=== PATIENT | female | born 1935 | race Caucasian/White ===

== ENCOUNTER 2020-12-19 07:48 | Outpatient (CLI) | payer MEDICARE, SELFPAY ==
--- NOTE | ~2020-12-19 | DEXA_ITS ---
Bone Density Report Name: Gail Duke Age: 85 Sex: Female Ethnicity: White Date of : 1935 Indication: osteopenia; height loss; cancer; Referring Provider: Jay Agudelo Study: Bone densitometry was performed. Exam Date: December 19, 2020 Accession number: [id number] Bone Density: Region BMD T-score Z-score Classification AP Spine (L1, L3) 1.016 0.0 2.8 Normal Femoral Neck (Left) 0.634 -1.9 0.6 Osteopenia Total Hip (Left) 0.754 -1.5 0.8 Osteopenia Total Hip Bilateral Avg 0.721 -1.8 0.5 Osteopenia Femoral Neck (Right) 0.645 -1.8 0.7 Osteopenia Total Hip (Right) 0.686 -2.1 0.2 Osteopenia World Health Organization criteria for BMD impression classify patients as: Normal (T-score at or above -1.0), Osteopenia (T-score between -1.0 and -2.5), or Osteoporosis (T-score at or below -2.5). 10-year Fracture Risk(1): Major Osteoporotic Fracture 13% Hip Fracture 4.2% Reported Risk Factors: [place] (), Neck BMD=0.634, BMI=20.7 (1) FRAX(R) Version 3.08. Fracture probability calculated for an untreated patient. Fracture probability may be lower if the patient has received treatment. Previous Exams: Region Exam Age BMD T-score BMD Change BMD Change Date g/cm2 vs Baseline vs Previous AP Spine(L1, L3) 12/19/2020 85 1.016 0.0 0.071(7.5%)# 0.056(5.8%)# 11/05/2010 75 0.960 -0.5 0.015(1.6%) -0.001(-0.1%) 10/31/2008 73 0.961 -0.5 0.016(1.6%) 0.016(1.6%) 06/24/2006 71 0.946 -0.6 Total Hip(Left) 12/19/2020 85 0.754 -1.5 -0.178(-19.1%) -0.177(-19.0%) 11/05/2010 75 0.932 -0.1 -0.001(-0.1%) -0.022(-2.3%) 10/31/2008 73 0.954 0.1 0.022(2.3%) 0.022(2.3%) 06/24/2006 71 0.932 -0.1 Total Hip(Right) 12/19/2020 85 0.686 -2.1 -0.164(-19.3%) -0.125(-15.4%) 11/05/2010 75 0.810 -1.1 -0.039(-4.6%)* -0.039(-4.6%)* 10/31/2008 73 0.850 -0.8 0.000(0.0%) 0.000(0.0%) 06/24/2006 71 0.849 -0.8 *Denotes significance at 95% confidence level, LSC for AP Spine = 0.022 g/cm2, LSC for Total Hip = 0.027 g/cm2 Clinical Information Provided by Patient: Has used the following medications: Vitamin D Has the following medical conditions: Cancer Patient maximum height was 65 Menopause Age: 55 Does not regularly consume dairy products Drinks caffeinated beverages Onset of menses at age 12 Number of children 4 Impression: The patient has low bone mass, based on the Right
== END 2020-12-19 07:49 | disposition home or self-care (01) ==
PROVIDERS: PCP Family Medicine; Visit Provider Physician Assistant Medical
DX: Z78.0 Asymptomatic menopausal state (principal); M85.851 Other specified disorders of bone density and structure, right thigh; M85.852 Other specified disorders of bone density and structure, left thigh
CPT/HCPCS: 77080

== ENCOUNTER 2022-10-11 09:12 | Outpatient (CLI) | payer MEDICARE, SELFPAY ==
[2022-10-11 12:06] LABS: Kit Draw Collected
== END 2022-10-11 09:13 | disposition home or self-care (01) ==
LOC: ANHGOSHLAB 09:14
PROVIDERS: PCP Family Medicine; Visit Provider Physician Assistant
DX: Z79.899 Other long term (current) drug therapy (principal)
CPT/HCPCS: 36415

== ENCOUNTER 2023-09-23 12:36 | Emergency (ER) | payer MEDICARE, SELFPAY ==
--- NOTE | ~2023-09-23 | CT_ITS ---
EXAMINATION: CT BRAIN W/O DATE: 09/23/2023 14:50 INDICATION: Weakness TECHNIQUE: Computed tomography (CT) of the head was performed without intravenous contrast. The dose- length product was 681.00 mGy-cm. Automated exposure control and iterative reconstruction technique w ere employed. COMPARISON: No prior studies for comparison. FINDINGS: Normal brain parenchymal volume for age. Normal elizabeth-white differentiation. No acute intrac ranial hemorrhage, infarction, mass or mass effect. No ventriculomegaly or midline shift. Midline sagittal images demonstrate a normal corpus callosum, c raniovertebral junction and sella turcica. Basilar cisterns are patent. Paranasal sinuses and mastoids are pneumatized. No depressed skull fractures. IMPRESSION: 1. No acute intracranial abnormality. Reviewed, dictated and finalized at location B.
[2023-09-23 13:04] VITALS: BP 157/86; PULSE 94; RESP 16; TEMP 36.4; O2SAT 99
--- NOTE | 2023-09-23 14:31 | ED.GENADULT ---
HPI - General Adult General Chief complaint: Weakness <Karen Franklin APRN - Last Filed: 09/23/23 19:36> Stated complaint: weak <Karen Franklin APRN - Last Filed: 09/23/23 19:36> Time Seen by Provider: 09/23/23 14:31 <Karen Franklin APRN - Last Filed: 09/23/23 19:36> Focused HPI: Gail Duke is an 88 y/o female who presents with reports of having symptoms of a TIA about a week ago and then again today and her PCP wanted her checked out. She explains that last friday she had an episode of vision changes, feeling not right/ she states difficult to describe but it did not last long and she went about her day. Today she had another episode of feeling really bad wtih vision changes that didn't last very long and she called her PCP and her PCP told her to go to the ER. She denies chest pain / palpitations/ SOB/ numbness/tingling/ she states she had some pain to the left side of her head after the first episode but that's it. GENERAL: Well-appearing, well-nourished, and in no acute distress. HEAD: Normocephalic, atraumatic. CHEST: Clear to auscultation. ?No respiratory distress. HEART: Regular rate and rhythm.? NEURO: ?Alert and oriented x3. Patient screened in triage and initial orders placed.? ?Additional care and disposition to be based upon?diagnostic testing and treatment. <Karen Franklin APRN - Last Filed: 09/23/23 19:36> History of Present Illness HPI narrative: Patient presents with complaint of intermittent brief episodes of generalized weakness. No chest pain, shortness of breath, abdominal pain, dizziness, nausea, or vomiting. She states she will experience feeling strangely and her eyes will feel weird but without curtain defect, flashes/floaters. This started occurring last Friday but she has remained active, playing tennis since. No active symptoms today. No headache but she does state her head felt sore the next day. Episodes will last for only a few secondrs with the last one occurring this morning. <Laurie Romero MD - Last Filed: 09/28/23 15:25> Related Data Home medications: Home Medications Medication Instructions Recorded Confirmed latanoprost 0.005 % eye drops 1 drp EACH EYE 10/28/22 10/28/22 <Karen Lewis September, - Last Filed: 09/23/23 19:36> Allergies/adverse reactions: Allergies Allergy/AdvReac Type Severity Reaction Status Date / Time No Known Allergies Allergy Verified 04/30/23 12:53 <Karen Lewis September, - Last Filed: 09/23/23 19:36> PMFSH Past Medical History Medical History: Medical History Biceps tendonitis on left External hemorrhoids Facet arthropathy Mallet finger of left finger(s) Other intervertebral disc degeneration, 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 SVT (supraventricular tachycardia) Viral hepatitis A without hepatic coma <Karen Lewis September, - Last Filed: 09/23/23 19:36> Family History Family History: Family History Sibling Diabetes mellitus Mother Family history of Alzheimer's disease <Karen Lewis September, - Last Filed: 09/23/23 19:36> Social History Social History: Social History Smoking status: Never smoker Alcohol intake: never Substance use: never Lack of Transportation: No Lack of Food: Never True Current Housing: I Have Housing Concerned About Future Housing: No Difficulty Paying Gas/Electric Bills: No Difficulty Paying for Meds: No Currently Unemployed: No Education: High School Diploma/GED Difficulty w/ Childcare or Family Care: No <Karen Lewis September, - Last Filed: 09/23/23 19:36> Exam Const: General: healthy appearing, no acute distress and alert; No confusion, diaphoretic or ill appearing <Laurie Romero MD - Last Filed: 09/28/23 15:25> Nutritional Appearance: well nourished <Laurie Braun
--- NOTE | 2023-09-23 14:38 | ECG_ITS ---
SEE SCANNED COPY FOR CONFIRMED REPORT MTDD
[2023-09-23 15:04] LABS: Basophils Percent Auto 0.6 % (0.2-1.2); Eosinophils Percent Auto 0.4 % (0-4.4); Hematocrit 39.6 % (37.0-47.0); Hemoglobin 12.9 g/dL (12.0-15.0); Immature Granulocyte Absolute 0.01 K/mm3 (0.00-0.031); Immature Granulocyte Percent A 0.1 % (0-0.5); Lymphocytes Percent Auto 19.8 % (18.3-44.2); Mean Corpuscular HGB Conc 32.6 g/dl (32-36); Mean Corpuscular Hemoglobin 30.6 pg (26-34); Mean Corpuscular Volume 94.1 fl (80-100); Mean Platelet Volume 9.6 fl (7.4-10.4); Monocytes Absolute Auto 0.7 K/mm3 (0.1-0.6); Monocytes Percent Auto 8.2 % (2.6-8.5); Neutrophils Absolute Auto 5.7 K/mm3 (1.3-6.7); Neutrophils Percent Auto 70.9 % (45.5-73.1); Platelet Count Result 296 k/mm3 (150-375); Red Blood Count 4.21 M/mm3 (4.2-5.4); Red Cell Distribution Width 12.4 % (11.5-14.5); White Blood Count 8.1 K/mm3 (4.5-10.0)
[2023-09-23 15:05] LABS: Basophils Absolute Auto 0.1 K/mm3 (0.0-0.1)
[2023-09-23 15:16] LABS: Alanine Aminotransferase 20 U/L (6-35); Albumin Level 4.8 g/dL (3.5-5.1); Alkaline Phosphatase 80 U/L (38-126); Anion Gap 5 mmol/L (4-12); Aspartate Amino Transferase 27 U/L (14-36); Bilirubin,Total 0.5 mg/dL (0.2-1.3); Blood Urea Nitrogen 18 mg/dL (7-17); Carbon Dioxide 28 mmol/L (22-30); Chloride 106 mmol/L (98-107); Estimated CRCL calculation 31 ml/min; Estimated Glomerular Filt Rate 59; Glucose 105 mg/dL (65-110); Potassium 4.5 mmol/L (3.4-5.0); Sodium 139 mmol/L (137-145)
[2023-09-23 15:17] LABS: Appearance Urine Clear (Clear); Color Urine Dark Yellow (Yellow); Protein Urine Negative (Negative); Specific Grav Ur 1.022 (1.001-1.035); pH Urine 5.5 (5.0-9.0)
[2023-09-23 15:18] VITALS: BP 154/78; PULSE 81; RESP 15; O2SAT 99
[2023-09-23 15:18] LABS: Bacteria Urine None Seen /hpf; Bilirubin Urine Negative (Negative); Blood Urine Negative (Negative); Glucose Urine UA Negative (Negative); Hyaline Casts Urine Present /lpf; Ketones Urine Trace mg/dL (Negative); Leukocyte Esterase Ur Trace LEU/UL (Negative); Need Manual Microscopic Reviewed; Nitrate Urine Negative (Negative); Non Pathogenic Casts >20; RBC Urine 0-2 /hpf (0-2); Squamous Epithelial Cell Urine None Seen /hpf (Few); WBC Urine 0-5 /hpf (0-3)
[2023-09-23 15:19] VITALS: PULSE 81
[2023-09-23 15:19] LABS: Add Urine Microscopic? YES
[2023-09-23 15:28] LABS: Troponin I < 0.012 ng/mL (0.000-0.034)
[2023-09-23 15:50] VITALS: BP 157/100; PULSE 84; RESP 17; O2SAT 100
[2023-09-23 15:54] LABS: Prothrombin Time 13.1 Seconds (11.1-14.7)
[2023-09-23 15:56] LABS: Partial Thromboplastin Time 27.7 Seconds (22.3-36.8)
--- NOTE | 2023-09-23 16:44 | ED.WEAKNESS ---
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 SVT (supraventricular tachycardia) Viral hepatitis A without hepatic coma Family History Family History Sibling Diabetes mellitus Mother Family history of Alzheimer's disease Social History Social History Smoking status: Never smoker Alcohol intake: never Substance use: never Lack of Transportation: No Lack of Food: Never True Current Housing: I Have Housing Concerned About Future Housing: No Difficulty Paying Gas/Electric Bills: No Difficulty Paying for Meds: No Currently Unemployed: No Education: High School Diploma/GED Difficulty w/ Childcare or Family Care: No Course Vital Signs Vital signs: Vital Signs Temperature 97.5 F L 09/23/23 13:04 Pulse Rate 94 09/23/23 13:04 Respiratory Rate 16 09/23/23 13:04 Blood Pressure 157/86 H 09/23/23 13:04 Pulse Oximetry 99 09/23/23 13:04 Temperature 97.5 F L 09/23/23 13:04 Pulse Rate 87 09/23/23 18:20 Respiratory Rate 14 09/23/23 18:20 Blood Pressure 141/108 H 09/23/23 18:20 Pulse Oximetry 97 09/23/23 18:20 MDM - Weakness Lab Data 09/23/23 14:58 09/23/23 14:58 Labs: Lab Results 09/23/23 09/23/23 09/23/23 Range/Units 14:53 14:58 17:34 WBC 8.1 (4.5-10.0) K/mm3 RBC 4.21 (4.2-5.4) M/mm3 Hgb 12.9 (12.0-15.0) g/dL Hct 39.6 (37.0-47.0) % MCV 94.1 (80-100) fl MCH 30.6 (26-34) pg MCHC 32.6 (32-36) g/dl RDW 12.4 (11.5-14.5) % Plt Count 296 (150-375) k/mm3 MPV 9.6 (7.4-10.4) fl Immature Gran % (Auto) 0.1 (0-0.5) % Neut % (Auto) 70.9 (45.5-73.1) % Lymph % (Auto) 19.8 (18.3-44.2) % [place] % (Auto) 8.2 (2.6-8.5) % Eos % (Auto) 0.4 (0-4.4) % Baso % (Auto) 0.6 (0.2-1.2) % Lymph # (Auto) 1.60 (0.9-3.2) K/mm3 [place] # (Auto) 0.7 H (0.1-0.6) K/mm3 Eos # (Auto) 0.0 (0-0.3) K/mm3 Baso # (Auto) 0.1 (0.0-0.1) K/mm3 Abs Immat Gran (auto) 0.01 (0.00-0.031) K/mm3 Absolute Neuts (auto) 5.7 (1.3-6.7) K/mm3 Absolute Nucleated RBC 0.000 (0.0-0.012) K/mm3 Nucleated RBC % 0.0 (0.0-0.2) % PT 13.1 (11.1-14.7) Seconds INR 1.0 APTT 27.7 (22.3-36.8) Seconds Sodium 139 (137-145) mmol/L Potassium 4.5 (3.4-5.0) mmol/L Chloride 106 (98-107) mmol/L Carbon Dioxide 28 (22-30) mmol/L Anion Gap 5 (4-12) mmol/L BUN 18 H (7-17) mg/dL Creatinine 0.90 (0.7-1.0) mg/dL Estim Creat Clear Calc 31 ml/min Estimated GFR 59 (59 - ) Glucose 105 (65-110) mg/dL Calcium 10.0 (8.4-10.2) mg/dL Magnesium (1.6-2.3) mg/dL Total Bilirubin 0.5 (0.2-1.3) mg/dL AST 27 (14-36) U/L ALT 20 (6-35) U/L Alkaline Phosphatase 80 (38-126) U/L Total Creatine Kinase (30-135) U/L Troponin I < 0.012 (0.000-0.034) ng/mL Total Protein 9.0 H (6.3-8.2) g/dL Albumin 4.8 (3.5-5.1) g/dL Urine Color Dark yellow (Yellow) Urine Appearance Clear (Clear) Urine pH 5.5 (5.0-9.0) Ur Specific [place] 1.022 (1.001-1.035) Urine Protein Negative (Negative) mg/dL Urine Glucose (UA) Negative (Negative) mg/dL Urine Ketones Trace H (Ne
--- NOTE | 2023-09-23 17:38 | ECG_ITS ---
SEE SCANNED COPY FOR CONFIRMED REPORT MTDD
[2023-09-23 18:05] LABS: Creatine Kinase 67 U/L (30-135); Magnesium 2.1 mg/dL (1.6-2.3)
[2023-09-23 18:15] LABS: Influenza A QL RT-PCR Negative (Negative); Influenza B QL RT-PCR Negative (Negative); RSV RNA, RT-PCR Negative (Negative); SARS-CoV-2 RNA PCR Negative (Negative)
[2023-09-23 18:20] VITALS: BP 141/108; PULSE 87; RESP 14; O2SAT 97
== END 2023-09-23 18:58 | disposition home or self-care (01) ==
PROVIDERS: Nurse Practitioner Family; Emergency Provider Student in an Organized Health Care Education/Training Program; PCP Family Medicine
DX: R53.1 Weakness (principal); Z20.822 Contact with and (suspected) exposure to COVID-19
CPT/HCPCS: 36415; 70450; 80053; 81001; 82550; 83735; 84484; 85025; 85610; 85730; 87637; 93005; 99284

== ENCOUNTER 2025-01-10 13:51 | Outpatient (CLI) | payer MEDICARE, SELFPAY ==
--- NOTE | ~2025-01-10 | DEXA_ITS ---
Bone Density Report Name: ADWOA PATEL Age: 89 Sex: Female Ethnicity: White Date of : 1935 Indication: osteopenia; height loss; cancer; secondary osteoporosis; Referring Provider: SAMEERA POOLE Study: Bone densitometry was performed. Exam Date: January 10, 2025 Accession number: [id number] Bone Density: Region BMD T-score Z-score Classification AP Spine(L1, L3) 0.920 -0.8 1.9 Normal Femoral Neck (Left) 0.588 -2.4 0.2 Osteopenia Total Hip (Left) 0.791 -1.2 1.1 Osteopenia Femoral Neck (Right) 0.571 -2.5 0.0 Osteoporosis Total Hip (Right) 0.693 -2.0 0.3 Osteopenia Total Hip Mean 0.742 -1.6 0.7 Osteopenia World Health Organization criteria for BMD impression classify patients as: Normal (T-score at or above -1.0), Osteopenia (T-score between -1.0 and -2.5), or Osteoporosis (T-score at or below -2.5). 10-year Fracture Risk: FRAX not reported because: Some T-score for Spine Total or Hip Total or Femoral Neck at or below -2.5 Previous Exams: Region Exam Age BMD T-score BMD Change BMD Change Date g/cm2 vs Baseline vs Previous AP Spine (L1,L3) 01/10/2025 89 0.920 -0.8 -0.097 (-9.5%) -0.097 (-9.5%) 12/19/2020 85 1.016 0.0 Total Hip(Left) 01/10/2025 89 0.791 -1.2 0.036 (4.8%)* 0.036 (4.8%)* 12/19/2020 85 0.754 -1.5 Total Hip(Right) 01/10/2025 89 0.693 -2.0 0.007 (1.0%) 0.007 (1.0%) 12/19/2020 85 0.686 -2.1 *Denotes significance at 95% confidence level, LSC for AP Spine = 0.022 g/cm2, LSC for Total Hip = 0.027 g/cm2 Clinical Information Provided by Patient: Has secondary osteoporosis Has used the following medications: Vitamin D Has the following medical conditions: Cancer Patient maximum height was 65.0 Menopause Age: 55 No regular weight bearing exercise Does not regularly consume dairy products Drinks caffeinated beverages Onset of menses at age 12 Number of children 4 Impression: The patient has osteoporosis, based on the Right Femoral Neck T-score. The BMD for the AP Spine (L1,L3) decreased, changing by -9.5% since the last DXA exam. Discussion: INCREASED RISK OF FRACTURE. BONE DENSITY IS UNDESIRABLY LOW AT ONE OR MORE SKELETAL SITES, CONSISTENT WITH POSTMENOPAUSAL OSTEOPOROSIS. This patient's lowest T-score meets the World Health Organization's (WHO) criteria for osteoporosis at one or more sites (T-score -2.5 or below). In untreated patients, the risk of osteoporotic fracture increases approximately two-fold for each 1.0 SD decrease in T-score. Low bone density is not the only risk factor for fracture; also consider factors such as patient's age, frailty or poor health, risk of falling, risk of injury, previous osteoporotic fracture, family history of osteoporosis, cigarette smoking, low body weight, etc. Not everyone with low bone mineral density has osteoporosis; osteomalacia and other metabolic bone disorders should also be considered. Patients who have osteoporosis should be evaluated for specific diseases and conditions (secondary causes) that may cause or contribute to bone loss. The [place] [employer] Endocrinologists (AACE) and National Osteoporosis Foundation (NOF) recommend pharmacologic intervention for all postmenopausal women whose T-score is in this range. The patient should follow a healthful lifestyle (good nutrition with adequate calcium and vitamin D, and appropriate weight-bearing exercise). Follow-Up: Consider a repeat BMD and Vertebral Fracture Assessment (VFA) exam in 2 years or sooner if medically necessary, to reassess this patient's status. Reported by: ZACH on 01/10/2025 2:36:00 PM. Reviewed, dictated and finalized at location A.
--- OUTSIDE RECORDS SUMMARY | 2025-01-10 15:01 | XMS_ITS | Clinical Summary ---
Author Organization [facility] Address [address] [place] [address] Care Team Providers Care Senior Reservations Agent Name Role Phone Unavailable Primary Care Provider Unavailabl e Source Comments [facility],non-owned Affiliates and Associated Physician Practices is amultiple site organization consisting of ambulatory clinics and hospital sitesin [place], [place], [place] and [place]. This disclosure is being madepursuant to the Care Everywhere program and may not contain all information available regarding this patient. Last updated 18.[facility] Personal Development Bureau Immunizations Immunization Administration Dates Next Due INFLUENZA VACCINE, HIGH-DOSE , QUADR. (FLUZONE HIGH-DOSE QUADRIVALENT; 65Y+), 0.7 ML (HD-IIV4) 03/31/2017 Social History Tobacco Use Types Packs/Day Years Used Date Smoking Tobacco: Never Assessed Comments Unknown Sex and Gender Information Value Date Recorded Sex Assigned at Not on file Legal Sex Female 12:48 PM [employer] Gender Identity Not on file Sexual Orientation Not on file Plan of Treatment Health Maintenance Due Date Last Done Comments BONE DENSITY TESTING 1935 DTAP/TDAP/TD VACCINES (1 - Tdap) 1954 PNEUMOCOCCAL VACCINE 50+ (1 of 1 - PCV) 1985 ZOSTER VACCINE (1 of 2) 1985 Respiratory Syncytial Virus (RSV) Vaccine Pt: or over 60 yrs (1 - 1-dose 75+ series) 2010 COVID-19 VACCINE ( - 2023-2 5 season) 2024 DEPRESSION SCREENING 05/26/2024 INFLUENZA VACCINE (#1) 2025 03/31/2017 HEPATITIS B VACCINE Aged Out No longe r eligible based on patient's age to complete this topic HIB VACCINE Aged Out No longer eligi ble based on patient's age to complete this topic HPV VACCINE Aged Out No longer eligi ble based on patient's age to complete this topic MENINGOCOCCAL (Group B) VACC INE SHARED DECISION-MAKING Aged Out No longer eligibl e based on patient's age to complete this topic MENINGOCOCCAL GROUPS A/C/Y/W VACCINE Aged Out No longer eligible b ased on patient's age to complete this topic Insurance MEDICARE [facility]
== END 2025-01-10 13:52 | disposition home or self-care (01) ==
LOC: ANHIMG 13:52
PROVIDERS: PCP Family Medicine; Visit Provider Family Medicine
DX: M81.0 Age-related osteoporosis without current pathological fracture (principal)
CPT/HCPCS: 77080